=== PATIENT | male | born 1960 | race Hispanic/Latino ===

== ENCOUNTER 2018-12-21 08:38 | Emergency (ER) | payer MEDICAID ==
[2018-12-21 08:45] VITALS: BP 144/98
[2018-12-21] MEDS ORDERED: TORADOL IM ONE (09:51)
[2018-12-21] MEDS ORDERED: FLEXERIL PO ONE (09:51)
--- NOTE | 2018-12-21 09:55 | Emergency Department Report ---
HPI - General Chief Complaint: Back Pain/Injury Time Seen by Provider: 12/21/18 09:23 - HPI HPI: 58-year-old male presents to the emergency department with complaint of some mid back pain that has been going on for the past 2 or 3 months but wor sened over the past 3 or 4 days. The pain is sharp and occurs with certain movements. He denies any fall, injury, trauma or any known inciting factor. He denies any problems with bowel or bladder, numbness or paresthesias, or any neurological deficits. He denies any fever. Patient has a previous history of drug abuse but it has been years since he last used illicit drugs. He did try some aspirin for his symptoms without much relief. No recent travel or sick contacts at home. He does not have a primary care physician. ED Past Medical Hx - Past Medical History Hx Hypertension: Yes Hx Congestive Heart Failure: Yes - Surgical History Past Surgical History?: No - Social History Smoking Status: Never Smoker Substance Use Type: None - Medications Home Medications: Home Medications Medication Instructions Recorded Confirmed Last Taken Type ALPRAZolam [Xanax] 0.25 mg PO PRN PRN 09/20/13 09/20/13 09/20/13 07:00 History Aspirin 325 mg PO QDAY 09/20/13 09/20/13 09/20/13 07:00 History Carvedilol [Coreg] 6.25 mg PO BID 09/20/13 09/20/13 09/20/13 07:00 History Famotidine [Pepcid] 20 mg PO BID 09/20/13 09/20/13 09/17/13 History Lisinopril [Zestril TAB] 10 mg PO BID 09/20/13 09/20/13 09/20/13 07:00 History Sildenafil Citrate [Viagra] 25 mg PO PRN PRN 09/20/13 09/20/13 09/14/13 History Cyclobenzaprine [Flexeril] 10 mg PO TID PRN #12 tablet 12/21/18 Unknown Rx Ibuprofen [Motrin 600 MG tab] 600 mg PO Q8H PRN #20 tablet 12/21/18 Unknown Rx ED Review of Systems ROS: Stated complaint: BACK PAIN Other details as noted in HPI Comment: All other systems reviewed and negative Constitutional: denies: chills, fever Respiratory: denies: shortness of breath Cardiovascular: denies: chest pain Genitourinary: denies: dysuria Musculoskeletal: back pain. denies: joint swelling Neurological: denies: numbness, paresthesias Physical Exam - Physical Exam Vital Signs: Vital Signs 12/21/18 08:44 Temperature 97.6 F Pulse Rate 68 Respiratory 14 Rate Blood Pressure 144/98 O2 Sat by Pulse 98 Oximetry Physical Exam: GENERAL: The patient is well-developed well-nourished. HENT: Normocephalic. Atraumatic. Patient has moist mucous membranes. EYES: Extraocular motions are intact. NECK: Supple. Trachea is midline. CHEST/LUNGS: Clear to auscultation. There is no respiratory distress noted. HEART/CARDIOVASCULAR: Regular. There is no tachycardia. There is no murmur. ABDOMEN: Abdomen is soft, nontender.There is no abdominal distention. SKIN: Skin is warm and dry. NEURO: The patient is awake, alert, and oriented. The patient is cooperative. The patient has no focal neurologic deficits. Normal speech. DTR patellar +2 over 4 bilaterally. MUSCULOSKELETAL: There is no tenderness or deformity. There is no limitation range of motion. There is no evidence of acute injury. BACK: There is bilateral paraspinal lumbar tenderness to palpation. No midline lumbar or thoracic tenderness to palpation, step-off or deformity. ED Course Vital Signs 12/21/18 08:44 Temperature 97.6 F Pulse Rate 68 Respiratory 14 Rate Blood Pressure 144/98 O2 Sat by Pulse 98 Oximetry ED Medical Decision Making - Medical Decision Making This patient presents with some acute on chronic low back pain. No inciting injury or trauma. No midline pain and therefore I did not feel that any imaging was necessary at this time. He denies any problems with bowel or bladder, numbness or paresthesias or any neurological deficits. He appears low suspicion for any of the emergent condition such as cauda equina, epidural abscess or cord compression syndrome. He'll be given a small amount of muscle relaxers that can be used in conjunction with some anti-inflammatories. He has been given a referral for an orthopedist. He will return to the ER with any worsening of his symptoms or any acute distress. - Differential Diagnosis muscle spasm, muscle strain, UTI, malignancy Critical Care Time: No Critical care attestation.: If time is entered above; I have spent that time in minutes in the direct care of this critically ill patient, excluding procedure time. ED Disposition Clinical Impression: Back pain Qualifiers: Back pain location: low back pain Chronicity: unspecified Back pain laterality: bilateral Sciatica presence: without sciatica Qualified Code(s): M54.5 - Low back pain Disposition: DC- TO HOME OR SELFCARE Is pt being admited?: No Condition: Stable Instructions: Back Pain (ED) Additional Instructions: Please follow-up with a primary care physician in the next few days. I am giving you a referral for a local orthopedist, Dr. Crane, to follow up regarding her back pain. Return to the emergency Department with any worsening of your symptoms or any acute distress. You have been prescribed a medication that is sedating and therefore should not be taken prior to driving, working, and responsible for children and in no way should be mixed with alcohol of any quantity. Prescriptions: Cyclobenzaprine [Flexeril] 10 mg PO TID PRN #12 tablet PRN Reason: Muscle Spasm Ibuprofen [Motrin 600 MG tab] 600 mg PO Q8H PRN #20 tablet PRN Reason: Pain Referrals: VILMA CEDENO MD [Referring] - 3-5 Days TAWNY CRANE MD [Staff Physician] - 3-5 Days [facility] [Outside] - 3-5 Days Forms: Work/School Release Form Time of Disposition: 09:55
== END 2018-12-21 10:05 | disposition home or self-care (01) ==
LOC: ED 08:38
DX: M54.6 Pain in thoracic spine (principal); I11.0 Hypertensive heart disease with heart failure; I50.9 Heart failure, unspecified; Z79.899 Other long term (current) drug therapy; Z79.82 Long term (current) use of aspirin
CPT/HCPCS: 96372; 99282; J1885

== ENCOUNTER 2019-01-20 15:11 | Emergency (ER) | payer MEDICAID ==
--- NOTE | 2019-01-20 16:05 | Event Note ---
ED Screening Note Date of service: 01/20/19 Time: 16:01 ED Screening Note: This is a 58 y.o. M. that presents to the ER with right knee. Patient states he slipped on a rug in [employer] around 1400 today. Patient states he unable to apply weight. PMH of CHF, HLD, and HTN This initial assessment/diagnostic orders/clinical plan/treatment(s) is/are subject to change based on patients health status, clinical progression and re- assessment by fellow clinical providers in the ED. Further treatment and workup at subsequent clinical providers discretion. Patient/guardian urged not to elope from the ED as their condition may be serious if not clinically assessed and managed. Initial orders include: XR right knee
--- NOTE | 2019-01-20 16:46 | XRay Report ---
RIGHT KNEE 3 VIEWS INDICATION / CLINICAL INFORMATION: Right knee pain and swelling after fall. Possible fracture. COMPARISON: None available. FINDINGS: BONES and JOINT(S): No acute fracture or subluxation. There is mild osteoarthritis along the patellof emoral joint and medial compartment. SOFT TISSUES: No significant abnormality. ADDITIONAL FINDINGS: None. IMPRESSION: 1. No acute findings. 2. Mild osteoarthritis. Signer Name: Armando Hernandez MD Signed: 01/20/2019 4:42 PM Workstation Name: [id number]
[2019-01-20] MEDS ORDERED: MORPHINE 4 MG/1 ML INJ ONE (17:52)
[2019-01-20] MEDS ORDERED: MORPHINE 4 MG/1 ML INJ IM ONE (18:19)
--- NOTE | 2019-01-20 18:53 | Emergency Department Report ---
ED Lower Extremity HPI - General Chief Complaint: Extremity Problem,Nontraumatic Stated Complaint: KNEE INJURY Time Seen by Provider: 01/20/19 16:01 Source: patient Mode of arrival: Ambulatory Limitations: No Limitations - History of Present Illness Initial Comments: 58-year-old male was admitted department complaining of pain to the right knee at that slip and fall at the [employer]. Patient states he was walking and now when he tripped over an object that was laying in the floor causing him to fall forward and of position and landed on his right knee since that time. He reports having swelling and pain to the knee, worse with palpation and ambulation. No numbness or tingling is noted. No broken skin MD Complaint: knee injury -: Sudden, days(s) Injury: Knee: Right Type of Injury: blunt Severity: moderate Worsens With: weight bearing, movement, palpation Context: fall Associated Symptoms: swelling, able to partially bear weight. denies: tingling - Related Data Home Medications Medication Instructions Recorded Confirmed Last Taken ALPRAZolam [Xanax] 0.25 mg PO PRN PRN 09/20/13 09/20/13 09/20/13 07:00 Aspirin 325 mg PO QDAY 09/20/13 09/20/13 09/20/13 07:00 Carvedilol [Coreg] 6.25 mg PO BID 09/20/13 09/20/13 09/20/13 07:00 Famotidine [Pepcid] 20 mg PO BID 09/20/13 09/20/13 09/17/13 Lisinopril [Zestril TAB] 10 mg PO BID 09/20/13 09/20/13 09/20/13 07:00 Sildenafil Citrate [Viagra] 25 mg PO PRN PRN 09/20/13 09/20/13 09/14/13 Previous Rx's Medication Instructions Recorded Last Taken Type Cyclobenzaprine [Flexeril] 10 mg PO TID PRN #12 tablet 12/21/18 Unknown Rx Ibuprofen [Motrin 600 MG tab] 600 mg PO Q8H PRN #20 tablet 12/21/18 Unknown Rx Acetaminophen/Codeine [Tylenol #3] 1 tab PO Q6H PRN #15 tab 01/20/19 Unknown Rx Ketorolac [Toradol] 10 mg PO Q6H PRN #15 tablet 01/20/19 Unknown Rx Allergies Allergy/AdvReac Type Severity Reaction Status Date / Time No Known Allergies Allergy Verified 01/20/19 16:03 ED Review of Systems ROS: Stated complaint: KNEE INJURY Other details as noted in HPI Comment: All other systems reviewed and negative ED Past Medical Hx - Past Medical History Hx Hypertension: Yes Hx Congestive Heart Failure: Yes - Social History Smoking Status: Never Smoker Substance Use Type: Alcohol - Medications Home Medications: Home Medications Medication Instructions Recorded Confirmed Last Taken Type ALPRAZolam [Xanax] 0.25 mg PO PRN PRN 09/20/13 09/20/13 09/20/13 07:00 History Aspirin 325 mg PO QDAY 09/20/13 09/20/13 09/20/13 07:00 History Carvedilol [Coreg] 6.25 mg PO BID 09/20/13 09/20/13 09/20/13 07:00 History Famotidine [Pepcid] 20 mg PO BID 09/20/13 09/20/13 09/17/13 History Lisinopril [Zestril TAB] 10 mg PO BID 09/20/13 09/20/13 09/20/13 07:00 History Sildenafil Citrate [Viagra] 25 mg PO PRN PRN 09/20/13 09/20/13 09/14/13 History Cyclobenzaprine [Flexeril] 10 mg PO TID PRN #12 tablet 12/21/18 Unknown Rx Ibuprofen [Motrin 600 MG tab] 600 mg PO Q8H PRN #20 tablet 12/21/18 Unknown Rx Acetaminophen/Codeine [Tylenol #3] 1 tab PO Q6H PRN #15 tab 01/20/19 Unknown Rx Ketorolac [Toradol] 10 mg PO Q6H PRN #15 tablet 01/20/19 Unknown Rx ED Physical Exam - General Limitations: No Limitations General appearance: alert, in no apparent distress - Head Head exam: Present: atraumatic, normocephalic - Eye Eye exam: Present: normal appearance, PERRL, EOMI. Absent: conjunctival injection Pupils: Present: normal accommodation - ENT ENT exam: Present: normal orophraynx, mucous membranes moist, TM's normal bilaterally - Neck Neck exam: Present: normal inspection, full ROM - Respiratory Respiratory exam: Present: normal lung sounds bilaterally. Absent: respiratory distress, wheezes, rhonchi, chest wall tenderness, accessory muscle use - Cardiovascular Cardiovascular Exam: Present: regular rate, normal rhythm. Absent: systolic murmur, diastolic murmur, rubs, gallop - GI/Abdominal GI/Abdominal exam: Present: soft, normal bowel sounds - Rectal Rectal exam: Present: deferred - Extremities Exam Extremities exam: Present: normal inspection - Expanded Lower Extremity Exam Right Hip exam: Present: normal inspection, full ROM Upper Leg exam: Present: normal inspection, full ROM Knee exam: Present: tenderness, swelling, pain/laxity with varus (and pain with drawer test). Absent: ecchymosis, deformity Lower Leg exam: Present: normal inspection, full ROM Foot/Toe exam: Present: normal inspection Neuro vascular tendon exam: Present: no vascular compromise - Back Exam Back exam: Present: normal inspection - Neurological Exam Neurological exam: Present: alert, oriented X3 - Psychiatric Psychiatric exam: Present: normal affect, normal mood - Skin Skin exam: Present: warm, dry, intact, normal color. Absent: rash ED Course Vital Signs 01/20/19 16:01 Temperature 97.5 F L Pulse Rate 82 Respiratory 18 Rate Blood Pressure 132/93 [Right] O2 Sat by Pulse 96 Oximetry ED Lower Extremity MDM - Radiology Data Radiology results: report reviewed (an x-ray shows osteoarthritis. No acute fractures or dislocation) - Medical Decision Making 58-year-old male status post slip and fall on his right knee with normal x-rays, however, examination does support some evidence of internal derangement. He has crepitus with certain areas of range of motion and positive drawer test and some and some increased valgus. Discussed with patient the possibility of a meniscus and a ligamentous injury and advised him the importance stabilizations. He was placed in a knee immobilizer and he was educated on crutches. I also the importance of follow-up to orthopedic for differential definitive evaluation and treatment. He was given morphine while in the emergency department for his pain and sent home on pain. Pain medication as well, as well as an anti-inflammatory. He did express an understanding of the plan of care was was discussed with he and his Critical care attestation.: If time is entered above; I have spent that time in minutes in the direct care of this critically ill patient, excluding procedure time. ED Disposition Clinical Impression: Right knee injury Disposition: DC-01 TO HOME OR SELFCARE Is pt being admited?: No Does the pt Need Aspirin: No Condition: Stable Instructions: Knee Immobilizer (ED), Anterior Cruciate Ligament Injury (ED), Crutch Instructions (ED) Prescriptions: Ketorolac [Toradol] 10 mg PO Q6H PRN #15 tablet PRN Reason: Pain Acetaminophen/Codeine [Tylenol #3] 1 tab PO Q6H PRN #15 tab PRN Reason: Pain Referrals: TAWNY AUGUSTE MD [Staff Physician] - 3-5 Days
[2019-01-20 19:34] VITALS: BP 131/97
== END 2019-01-20 19:34 | disposition home or self-care (01) ==
LOC: ED 15:11
DX: S89.81XA Other specified injuries of right lower leg, initial encounter (principal); I11.0 Hypertensive heart disease with heart failure; I50.9 Heart failure, unspecified; Z79.82 Long term (current) use of aspirin; Z79.1 Long term (current) use of non-steroidal anti-inflammatories (NSAID); Z79.899 Other long term (current) drug therapy; W01.198A Fall on same level from slipping, tripping and stumbling with subsequent striking against other object, initial encounter; Y93.89 Activity, other specified; Y92.89 Other specified places as the place of occurrence of the external cause; Y99.8 Other external cause status
CPT/HCPCS: 29505; 73562; 96372; 99283; J2270

== ENCOUNTER 2019-04-02 12:38 | Emergency (ER) | payer MEDICAID ==
[2019-04-02 13:05] VITALS: BP 110/69
--- NOTE | 2019-04-02 13:15 | Emergency Department Report ---
ED Back Pain/Injury HPI - General Chief Complaint: Back Pain/Injury Stated Complaint: BACK PAIN EXTREME Time Seen by Provider: 04/02/19 13:06 Source: patient Limitations: No Limitations - History of Present Illness Initial Comments: This is a 58-year-old male nontoxic, well nourished in appearance, no acute signs of distress presents to the ED with c/o of acute on chronic lower back pain. Patient stated that the past 2 days he was moving and developed this pain. Patient denies any trauma. Denies any bladder or bowel instability. Patient denies any urinary symptoms. Denies any fever, chills, nausea, vomiting, headache, stiff neck, chest pain or shortness of breath. Patient denies any numbness or tingling. Denies any allergies. MD Complaint: back pain -: days(s) Similar Symptoms Previously: Yes Place: home Radiation: none Severity: mild Severity scale (0 -10): 3 Quality: aching Consistency: intermittent Improves With: immobilization, sitting upright Worsens With: movement, walking Context: while lifting, turning/twisting Associated Symptoms: denies other symptoms. denies: confusion, weakness, chest pain, numbness, difficulty walking, cough, diaphoresis, incontinence, fever/chills, constipation, headaches, abdominal pain, loss of appetite, malaise, nausea/vomiting, rash, seizure, shortness of breath, syncope - Related Data Home Medications Medication Instructions Recorded Confirmed Last Taken ALPRAZolam [Xanax] 0.25 mg PO PRN PRN 09/20/13 09/20/13 09/20/13 07:00 Aspirin 325 mg PO QDAY 09/20/13 09/20/13 09/20/13 07:00 Famotidine [Pepcid] 20 mg PO BID 09/20/13 09/20/13 09/17/13 Lisinopril [Zestril TAB] 10 mg PO BID 09/20/13 09/20/13 09/20/13 07:00 Sildenafil Citrate [Viagra] 25 mg PO PRN PRN 09/20/13 09/20/13 09/14/13 carvediloL [Coreg] 6.25 mg PO BID 09/20/13 09/20/13 09/20/13 07:00 Previous Rx's Medication Instructions Recorded Last Taken Type Cyclobenzaprine [Flexeril] 10 mg PO TID PRN #12 tablet 12/21/18 Unknown Rx Ibuprofen [Motrin 600 MG tab] 600 mg PO Q8H PRN #20 tablet 12/21/18 Unknown Rx Acetaminophen/Codeine [Tylenol #3] 1 tab PO Q6H PRN #15 tab 01/20/19 Unknown Rx Ketorolac [Toradol] 10 mg PO Q6H PRN #15 tablet 01/20/19 Unknown Rx Cyclobenzaprine [Flexeril] 10 mg PO QHS PRN #10 tablet 04/02/19 Unknown Rx Naproxen 500 mg PO Q12H PRN #20 tablet 04/02/19 Unknown Rx Allergies Allergy/AdvReac Type Severity Reaction Status Date / Time No Known Allergies Allergy Verified 01/20/19 16:03 ED Review of Systems ROS: Stated complaint: BACK PAIN EXTREME Other details as noted in HPI Constitutional: denies: chills, fever Eyes: denies: eye pain, eye discharge, vision change ENT: denies: ear pain, throat pain Respiratory: denies: cough, shortness of breath, wheezing Cardiovascular: denies: chest pain, palpitations Endocrine: no symptoms reported Gastrointestinal: denies: abdominal pain, nausea, diarrhea Genitourinary: denies: urgency, dysuria Musculoskeletal: back pain. denies: joint swelling, arthralgia Skin: denies: rash, lesions Neurological: denies: headache, weakness, paresthesias Psychiatric: denies: anxiety, depression Hematological/Lymphatic: denies: easy bleeding, easy bruising ED Past Medical Hx - Past Medical History Previous Medical History?: Yes Hx Hypertension: Yes Hx Congestive Heart Failure: Yes Hx Arthritis: Yes - Surgical History Past Surgical History?: No - Social History Smoking Status: Never Smoker Substance Use Type: None - Medications Home Medications: Home Medications Medication Instructions Recorded Confirmed Last Taken Type ALPRAZolam [Xanax] 0.25 mg PO PRN PRN 09/20/13 09/20/13 09/20/13 07:00 History Aspirin 325 mg PO QDAY 09/20/13 09/20/13 09/20/13 07:00 History Famotidine [Pepcid] 20 mg PO BID 09/20/13 09/20/13 09/17/13 History Lisinopril [Zestril TAB] 10 mg PO BID 09/20/13 09/20/13 09/20/13 07:00 History Sildenafil Citrate [Viagra] 25 mg PO PRN PRN 09/20/13 09/20/13 09/14/13 History carvediloL [Coreg] 6.25 mg PO BID 09/20/13 09/20/13 09/20/13 07:00 History Cyclobenzaprine [Flexeril] 10 mg PO TID PRN #12 tablet 12/21/18 Unknown Rx Ibuprofen [Motrin 600 MG tab] 600 mg PO Q8H PRN #20 tablet 12/21/18 Unknown Rx Acetaminophen/Codeine [Tylenol #3] 1 tab PO Q6H PRN #15 tab 01/20/19 Unknown Rx Ketorolac [Toradol] 10 mg PO Q6H PRN #15 tablet 01/20/19 Unknown Rx Cyclobenzaprine [Flexeril] 10 mg PO QHS PRN #10 tablet 04/02/19 Unknown Rx Naproxen 500 mg PO Q12H PRN #20 tablet 04/02/19 Unknown Rx ED Physical Exam - General Limitations: No Limitations General appearance: alert, in no apparent distress - Head Head exam: Present: atraumatic, normocephalic - Neck Neck exam: Present: normal inspection, full ROM. Absent: tenderness, meningismus, lymphadenopathy - GI/Abdominal GI/Abdominal exam: Present: soft. Absent: distended, tenderness - Extremities Exam Extremities exam: Present: normal inspection, full ROM - Back Exam Back exam: Present: normal inspection, full ROM, paraspinal tenderness (lumbar paraspinal). Absent: tenderness, CVA tenderness (R), CVA tenderness (L), muscle spasm, vertebral tenderness, rash noted - Neurological Exam Neurological exam: Present: alert, oriented X3, normal gait - Psychiatric Psychiatric exam: Present: normal affect, normal mood - Skin Skin exam: Present: warm, dry, intact, normal color. Absent: rash ED Course Vital Signs 04/02/19 13:04 Temperature 97.8 F Pulse Rate 79 Respiratory 18 Rate Blood Pressure 110/69 O2 Sat by Pulse 98 Oximetry - Reevaluation(s) Reevaluation #1: 04/02/19 13:15 Patient is speaking in full sentences with no signs of distress noted. ED Medical Decision Making - Medical Decision Making This is a 58-year-old male that presents with low back strain. Patient is stable was examined by me. There is no spinal tenderness. There is no cauda equina syndrome during examination. No bladder or bowel instability. Patient is discharged with muscle relaxant and NSAID. Patient was instructed not to operate any machinery while taking muscle relaxant as they cause her drowsiness. Patient was referred to Follow-up with a primary care doctor in 3-5 days or if symptoms worsen and continue return to emergency room as soon as possible. At time of discharge, the patient does not seem toxic or ill in appearance. No acute signs of distress noted. Patient agrees to discharge treatment plan of care. No further questions noted by the patient. Critical care attestation.: If time is entered above; I have spent that time in minutes in the direct care o f this critically ill patient, excluding procedure time. ED Disposition Clinical Impression: Low back strain Disposition: DC-01 TO HOME OR SELFCARE Is pt being admited?: No Does the pt Need Aspirin: No Condition: Stable Instructions: Muscle Strain (ED), Cyclobenzaprine (By mouth) Additional Instructions: ThiFollow-up with a primary care doctor in 3-5 days or if symptoms worsen and continue return to emergency room as soon as possible. Prescriptions: Cyclobenzaprine [Flexeril] 10 mg PO QHS PRN #10 tablet PRN Reason: Muscle Spasm Naproxen 500 mg PO Q12H PRN #20 tablet PRN Reason: Pain , Severe (7-10) Referrals: PRIMARY MD HATTIE [Referring] - 3-5 Days CHARLA WHITMORE MD [Staff Physician] - 3-5 Days [facility] [Outside] - 3-5 Days
== END 2019-04-02 13:30 | disposition home or self-care (01) ==
LOC: ED 12:38
DX: S39.012A Strain of muscle, fascia and tendon of lower back, initial encounter (principal); I11.0 Hypertensive heart disease with heart failure; I50.9 Heart failure, unspecified; M19.90 Unspecified osteoarthritis, unspecified site; Z79.1 Long term (current) use of non-steroidal anti-inflammatories (NSAID); Z79.899 Other long term (current) drug therapy; X50.1XXA Overexertion from prolonged static or awkward postures, initial encounter; Y93.89 Activity, other specified; Y92.89 Other specified places as the place of occurrence of the external cause; Y99.8 Other external cause status
CPT/HCPCS: 99282

== ENCOUNTER 2019-08-09 13:46 | Outpatient (CLI) | payer MEDICAID ==
--- NOTE | 2019-08-09 15:07 | Magnetic Resonance Report ---
MRI RIGHT KNEE WITHOUT CONTRAST INDICATION: Medial knee pain, unilateral primary osteoarthritis.. COMPARISON: None available. TECHNIQUE: Multisequence, multiplanar images were obtained. FINDINGS: ACL: Mucoid degeneration. PCL: Normal. DISTAL QUADRICEPS TENDON: Normal. PATELLAR TENDON: Normal. MEDIAL MENISCUS: There is complex likely degenerative tearing of the posterior horn and body of the m edial meniscus. LATERAL MENISCUS: Normal. POSTEROLATERAL CORNER: Normal. MCL: Normal. LCL: Normal. DISTAL BICEPS FEMORIS TENDON: Normal. POPLITEUS TENDON: Normal. DISTAL IT BAND: Normal. ARTICULAR CARTILAGE: There is advanced chondrosis in the medial femorotibial compartment with seconda ry marginal osteophyte formation and subchondral cystic change. There is moderate chondrolysis in the lateral femorotibial compartment and mild chondrosis in the patellofemoral compartment. JOINT SPACE: Small joint effusion with a small popliteal cyst. No popliteal cyst. INTRA-ARTICULAR BODIES: None. BONES: No bone marrow edema. No fracture. No osseous lesion. SOFT TISSUES: No acute findings. ADDITIONAL FINDINGS: None. IMPRESSION: 1. Mucoid degeneration of the ACL. 2. Complex tear of the body and posterior horn of the medial meniscus. 3. Advanced DJD in the medial femorotibial compartment and mild to moderate DJD in the lateral femoro tibial and patellofemoral compartments. 4. Small joint effusion. Signer Name: Vick Neville MD Signed: 08/09/2019 3:02 PM Workstation Name: [id number]
== END 2019-08-09 13:47 | disposition home or self-care (01) ==
LOC: MRI 13:46
PROVIDERS: ATTEND Orthopaedic Surgery
DX: S83.511A Sprain of anterior cruciate ligament of right knee, initial encounter (principal); M17.11 Unilateral primary osteoarthritis, right knee; M19.011 Primary osteoarthritis, right shoulder; M25.461 Effusion, right knee; X58.XXXA Exposure to other specified factors, initial encounter; Y93.89 Activity, other specified; Y92.89 Other specified places as the place of occurrence of the external cause; Y99.8 Other external cause status
CPT/HCPCS: 73721

== ENCOUNTER 2020-01-09 08:00 | Outpatient (CLI) | payer MEDICAID ==
[2020-01-09 10:16] VITALS: BP 121/79
--- NOTE | 2020-01-09 13:08 | Anesthesia Consultation ---
Anesthesia Consult and Med Hx Date of service: 01/10/20 - Airway Anesthetic Teeth Evaluation: Poor ROM Head & Neck: Adequate Mental/Hyoid Distance: Adequate Mallampati Class: Class I Intubation Access Assessment: Probably Good - Pulmonary Exam CTA: Yes - Cardiac Exam Cardiac Exam: RRR - Pre-Operative Health Status ASA Pre-Surgery Classification: ASA3 Proposed Anesthetic Plan: MAC - Pulmonary Hx Smoking: No SOB: Yes (RUBI however states functional capacity limited mostly by knee pain) Hx Sleep Apnea: No (MYNOR PRE SCREEN HIGH RISK) - Cardiovascular System Hx Hypertension: Yes (Rx for multiple antihypertensives but only takes lisinopril) Hx Heart Attack/AMI: No Hx Percutaneous Transluminal Coronary Angioplasty (PTCA): No Hx Cardia Arrhythmia: No - Central Nervous System CVA: No Hx Back Pain: Yes (w/ right leg pain) - Gastrointestinal Hx Gastroesophageal Reflux Disease: Yes (occasional, diet controlled) - Endocrine Hx Renal Disease: No Hx Liver Disease: No Hx Insulin Dependent Diabetes: No Hx Non-Insulin Dependent Diabetes: No Hx Thyroid Disease: No - Other Systems Hx Alcohol Use: Yes (6+ beers per day) Hx Substance Use: Yes (hx meth use; sober [id number]) Hx Obesity: No - Additional Comments Anesthesia Medical History Comments: No hx anesthetic complications. Previously cardiology records reviewed. Hx of CHF with EF <15% in 2011 with improvement to 45% in 2013. Normal stress test in 2013. Patient last saw paste worker 05/2018 and TTE was recommended at that time but patient did not get study completed. No signs of HF decomensation on exam however functional capacity is limited in part by dyspnea and patient has inconsistent compliance with medications/follow up. Patient instructed to follow with cardiology and complete any recommended studies prior to rescheduling surgical procedure.
== END 2020-01-09 10:00 | disposition home or self-care (01) ==
LOC: LAB 08:00 → EDSTATUS 01-10 09:45
PROVIDERS: ATTEND Orthopaedic Surgery
DX: Z11.59 Encounter for screening for other viral diseases (principal); M25.561 Pain in right knee
CPT/HCPCS: U0003-CS

== ENCOUNTER 2020-02-07 07:04 | Day surgery (SDC) | payer MEDICAID ==
[~2020-02-07 07:04] MED LIST: LACTATED RINGERS 1,000 ML IV SCH; MIDAZOLAM 2 MG/2 ML INJ IV NR
[2020-02-07] MEDS ORDERED: HYDROcodone/ACETAMINOPHEN 5-325 MG TAB PO PRN (10:22)
--- NOTE | 2020-02-07 10:22 | Anesthesia Day of Surgery ---
Anesthesia Day of Surgery - Day of Surgery Patient Examined: Yes Patient H&P Reviewed: Yes Patient is NPO: Yes Cardiac Clearance: Yes
--- NOTE | 2020-02-07 10:22 | Anesthesia Consultation ---
Anesthesia Consult and Med Hx Date of service: 02/07/20 - Airway Anesthetic Teeth Evaluation: Poor ROM Head & Neck: Adequate Mental/Hyoid Distance: Adequate Mallampati Class: Class II Intubation Access Assessment: Probably Good - Pulmonary Exam CTA: Yes - Cardiac Exam Cardiac Exam: RRR - Pre-Operative Health Status ASA Pre-Surgery Classification: ASA3 Proposed Anesthetic Plan: MAC - Pulmonary Hx Smoking: No Hx Respiratory Symptoms: No SOB: Yes (chronic RUBI however states functional capacity limited mostly by knee pain) Hx Sleep Apnea: No (MYNOR PRE SCREEN HIGH RISK) - Cardiovascular System Hx Hypertension: Yes Hx Coronary Artery Disease: Yes (nonobstructive; NICM w/ EF 45%) Hx Heart Attack/AMI: No Hx Percutaneous Transluminal Coronary Angioplasty (PTCA): No Hx Cardia Arrhythmia: No - Central Nervous System CVA: No Hx Back Pain: Yes (w/ right leg pain) Hx Psychiatric Problems: No - Gastrointestinal Hx Gastroesophageal Reflux Disease: Yes (occasional, diet controlled) - Endocrine Hx Renal Disease: No Hx Liver Disease: No Hx Insulin Dependent Diabetes: No Hx Non-Insulin Dependent Diabetes: No Hx Thyroid Disease: No - Other Systems Hx Alcohol Use: Yes (6+ beers per day) Hx Substance Use: Yes (hx meth use; sober x 2 months) Hx Obesity: No - Additional Comments Anesthesia Medical History Comments: No hx anesthetic complications. Cardiology eval on chart. EKG NSR 01/2020. Most recent TTE, stress test, and LHC from 2013 reviewed. EF 45% without significant valvulopathy.
[2020-02-07] MEDS ORDERED: methylPREDNISolone ACETATE 40 MG/1 ML INJ ONE (13:23)
[2020-02-07] MEDS ORDERED: LIDOCAINE (1%) 10 MG/1 ML VIAL 20 ML MDV ONE (13:24)
[2020-02-07] MEDS ORDERED: BUPIVACAINE/PF (0.5%) 5 MG/1 ML 30 ML VIAL INFILTRATI ONE ×2 (13:24→13:51)
[2020-02-07] MEDS ORDERED: KETAMINE/STERILE WATER 50 MG/ML SYRINGE ONE (13:32)
[2020-02-07] MEDS ORDERED: propofoL 200 MG/20 ML VIAL IV ONE ×2 (13:32→13:55)
[2020-02-07] MEDS ORDERED: LIDOCAINE (1%) 10 MG/1 ML VIAL 20 ML MDV INFILTRATI ONE (13:51)
[2020-02-07] MEDS ORDERED: methylPREDNISolone ACETATE 40 MG/1 ML INJ INTRA-ARTI ONE (13:51)
--- NOTE | 2020-02-07 14:24 | Procedure Note ---
Date of procedure: 02/07/20 Pre-op diagnosis: Osteoarthritis right knee Post-op diagnosis: same Procedure: Geniculate nerve radiofrequency ablation right knee Procedure The patient was brought to the OR and placed in the OR table supine position patient was Given IV and was masked the procedure following this the patient's right knee was prepped and draped in the routine sterile manner. A timeout procedure was done to identify the patient and the correct operative site. Under C-arm visualization the skin was anesthetized with the 1% lidocaine at both the medial and lateral suprapatellar regions as well as the proximal portion of the medial tibial metaphysis. Following this the the introducers radiofrequency ablator introducer probes were inserted into the distal femoral metaphysis close to the bone and midway along the sagittal plane as well as along the proximal tibial metaphysis to be appropriate place simultaneously following this following this the probe were checked for full motor nerve function there did not appear to be any next the radiofrequency ablator was turned on and the nerves were ablated to a temperature of 60C for approximately 2-1/2 minutes each. A mixture of Depo-Medrol and lidocaine was then injected into each location to help with postoperative pain and inflammation. The patient tolerated the procedure there were no complications he was then taken to postanesthesia recovery in a stable condition Anesthesia: other (IV sedation) Surgeon: TAWNY AUGUSTE Estimated blood loss: minimal Pathology: none Condition: stable Disposition: PACU
[2020-02-07] MEDS: fentaNYL 100 MCG/2 ML INJ IV PRN ×2 (14:40→14:50)
[2020-02-07 15:20] VITALS: BP 111/72
--- NOTE | 2020-02-07 15:38 | Post Anesthesia Evaluation ---
- Post Anesthesia Evaluation Patient Participated: Yes Airway Patent: Yes Stable Respiratory Function: Yes Nausea/Vomiting: No Temp > 96.8F: Yes Pain Manageable: Yes Adequeate Hydration: Yes Anesthesia Complications: No
--- NOTE | 2020-02-07 15:58 | XRay Report ---
RIGHT KNEE 2 VIEWS INDICATION: RT KNEE PAIN. COMPARISON: None. IMPRESSION: 21 seconds of fluoroscopy time was provided by radiology during right knee radiofrequency ablation. AP and lateral views of the right knee are presented demonstrating needle placement. Pleas e correlate with the procedural report as needed. Signer Name: Estiven Elliott Jr, MD Signed: 02/07/2020 3:54 PM Workstation Name: [id number]
== END 2020-02-07 07:05 | disposition home or self-care (01) ==
LOC: OR 07:04
PROVIDERS: ATTEND Orthopaedic Surgery
DX: M17.11 Unilateral primary osteoarthritis, right knee (principal); F17.210 Nicotine dependence, cigarettes, uncomplicated; F19.10 Other psychoactive substance abuse, uncomplicated; E78.5 Hyperlipidemia, unspecified; I42.9 Cardiomyopathy, unspecified; I11.0 Hypertensive heart disease with heart failure; I50.9 Heart failure, unspecified; I25.10 Atherosclerotic heart disease of native coronary artery without angina pectoris; K21.9 Gastro-esophageal reflux disease without esophagitis; Z98.890 Other specified postprocedural states; Z79.899 Other long term (current) drug therapy
CPT/HCPCS: 64624; 73560; A4649; J1030; J2250; J2704; J3010; J3490; J7120; U0003